=== PATIENT | male | born 1965 | race Caucasian/White ===

== ENCOUNTER 2018-05-10 14:34 | Inpatient (IN) | payer SELFPAY ==
[~2018-05-10] VITALS: Ht 182.9 cm; Wt 78.6 kg
[2018-05-10 14:37] VITALS: Ht 182.9 cm; Wt 78.6 kg
[2018-05-10 15:12] LABS: BASOPHIL % 0.5 % (0-2); PLATELET COUNT 298 x10^3mcL (130-400); RED CELL DISTRIBUTION WIDTH 13.8 % (11.5-14.5)
[2018-05-10 15:37] LABS: CARBON DIOXIDE 25.2 mmol/L (21-32); CHLORIDE SERUM 104 mmol/L (98-107); CREATININE SERUM 1.1 mg/dL (0.7-1.3); GFR1 > 60 mL/min; GLUCOSE SERUM 100 mg/dL (74-106); POTASSIUM SERUM 4.2 mmol/L (3.5-5.1); SODIUM SERUM 137 mmol/L (136-145)
[2018-05-10 15:44] LABS: ALBUMIN 3.4 g/dL (3.4-5.0); ALKALINE PHOSPHATASE 103 U/L (46-116); ALT/SGPT 27 U/L (16-63); AST/SGOT 15 U/L (15-37); BILIRUBIN TOTAL 0.3 mg/dL (0.20-1.00); TOTAL PROTEIN, SERUM 7.1 g/dL (6.4-8.2)
[2018-05-10] MEDS ORDERED: ASPIRIN CHILDRE81 MG PO (18:16)
[2018-05-10] MEDS ORDERED: PLA75 PO (18:16)
[2018-05-10 18:18] LABS: microscopic required? NO
[2018-05-10 18:30] LABS: UA SPECIFIC GRAVITY <=1.005 (1.005-1.035); urine erythrocyte NEGATIVE (NEGATIVE)
[2018-05-10 19:01] VITALS: BP 125/89
[2018-05-10 19:39] LABS: MAGNESIUM 2.3 mg/dL (1.8-2.4); PHOSPHOROUS 3.8 mg/dL (2.5-4.9)
[2018-05-10 19:40] LABS: CHOLESTEROL/HDL RATIO 5.8
[2018-05-10 23:41] LABS: FREE T4 0.84 ng/dL (0.76-1.46); FREE THYROXINE INDEX 2.7 ug/dL (1.4-4.5); T4(THYROXINE) 7.9 ug/dL (4.7-13.3)
[2018-05-11 00:56] LABS: T3 TOTAL 1.22 ng/mL
[2018-05-11 06:21] LABS: CALCIUM 8.6 mg/dL (8.5-10.1); CARBON DIOXIDE 25.9 mmol/L (21-32); CHLORIDE SERUM 107 mmol/L (98-107); CREATININE SERUM 1.1 mg/dL (0.7-1.3); GFR1 > 60 mL/min; GLUCOSE SERUM 86 mg/dL (74-106); MAGNESIUM 2.3 mg/dL (1.8-2.4); PHOSPHOROUS 4.1 mg/dL (2.5-4.9); POTASSIUM SERUM 4.1 mmol/L (3.5-5.1); SODIUM SERUM 140 mmol/L (136-145)
[2018-05-11 06:26] LABS: BASOPHIL % 0.5 % (0-2); PLATELET COUNT 254 x10^3mcL (130-400); RED CELL DISTRIBUTION WIDTH 13.7 % (11.5-14.5)
[2018-05-11 09:17] VITALS: BP 114/74
[2018-05-11 13:15] VITALS: BP 124/79
== END 2018-05-11 15:05 | disposition left against medical advice (07) | DRG 74 ==
LOC: ED 14:34 → DU 18:47
PROVIDERS: Emergency Medicine; Internal Medicine
DX: G90.9 Disorder of the autonomic nervous system, unspecified (principal); J44.9 Chronic obstructive pulmonary disease, unspecified; F17.200 Nicotine dependence, unspecified, uncomplicated; I10 Essential (primary) hypertension; R07.89 Other chest pain; R73.03 Prediabetes; Z53.21 Procedure and treatment not carried out due to patient leaving prior to being seen by health care provider; I25.2 Old myocardial infarction; Z86.73 Personal history of transient ischemic attack (TIA), and cerebral infarction without residual deficits; Z71.6 Tobacco abuse counseling
CPT/HCPCS: 83880; 84439; 90658; J2270; J7030; Q0092; Q9967

== ENCOUNTER 2019-03-13 16:34 | Emergency (ER) | payer SELFPAY ==
[~2019-03-13] VITALS: Ht 182.9 cm; Wt 89.8 kg
[~2019-03-13 16:34] MED LIST: ASPIRIN CHILDRE81 MG PO; PLA75 PO
[2019-03-13 16:39] VITALS: Ht 182.9 cm; Wt 89.8 kg
[2019-03-13 17:23] LABS: BASOPHIL % 0.1 % (0-2); PLATELET COUNT 280 x10^3mcL (130-400); RED CELL DISTRIBUTION WIDTH 14.3 % (11.5-14.5)
[2019-03-13 17:43] LABS: ALKALINE PHOSPHATASE 98 U/L (46-116); ALT/SGPT 22 U/L (16-63); AST/SGOT 13 U/L (15-37); BILIRUBIN TOTAL 0.68 mg/dL (0.20-1.00); CALCIUM 8.9 mg/dL (8.5-10.1); CREATININE SERUM 1.1 mg/dL (0.7-1.3); GFR1 > 60 mL/min; GLUCOSE SERUM 115 mg/dL (74-106); TOTAL PROTEIN, SERUM 6.5 g/dL (6.4-8.2)
[2019-03-13 17:48] LABS: CHLORIDE SERUM 104 mmol/L (98-107); POTASSIUM SERUM 3.2 mmol/L (3.5-5.1); SODIUM SERUM 128 mmol/L (136-145)
[2019-03-13 17:49] LABS: ALBUMIN 3.2 g/dL (3.4-5.0)
[2019-03-13 19:22] VITALS: BP 119/78
== END 2019-03-13 19:22 | disposition home or self-care (01) ==
LOC: ED 16:34
PROVIDERS: Student in an Organized Health Care Education/Training Program
DX: E87.1 Hypo-osmolality and hyponatremia (principal); R07.89 Other chest pain; R53.1 Weakness; R11.2 Nausea with vomiting, unspecified; J44.9 Chronic obstructive pulmonary disease, unspecified; I11.0 Hypertensive heart disease with heart failure; I50.9 Heart failure, unspecified; Z86.73 Personal history of transient ischemic attack (TIA), and cerebral infarction without residual deficits
CPT/HCPCS: 83880; J2405; Q0092

== ENCOUNTER 2020-09-07 04:26 | Inpatient (IN) | payer SELFPAY ==
[~2020-09-07] VITALS: Ht 188 cm; Wt 81.6 kg
[2020-09-07 04:38] VITALS: Ht 188 cm; Wt 81.6 kg
[2020-09-07 05:55] LABS: CALCIUM 8.9 mg/dL (8.5-10.1); CARBON DIOXIDE 25.9 mmol/L (21-32); CHLORIDE SERUM 105 mmol/L (98-107); CREATININE SERUM 1.3 mg/dL (0.7-1.3); GFR1 > 60 mL/min; GLUCOSE SERUM 106 mg/dL (74-106); POTASSIUM SERUM 4.1 mmol/L (3.5-5.1); SODIUM SERUM 139 mmol/L (136-145)
[2020-09-07 05:57] LABS: BASOPHIL % 1.2 % (0.2-1.5); PLATELET COUNT 219 x10^3mcL (152-348); RED CELL DISTRIBUTION WIDTH 13.7 % (12.1-16.2)
[2020-09-07 06:00] LABS: ALKALINE PHOSPHATASE 97 U/L (46-116); ALT/SGPT 30 U/L (16-63); AST/SGOT 13 U/L (15-37); BILIRUBIN TOTAL 0.35 mg/dL (0.20-1.00); TOTAL PROTEIN, SERUM 6.3 g/dL (6.4-8.2)
[2020-09-07 06:01] LABS: ALBUMIN 3.3 g/dL (3.4-5.0)
[2020-09-07 08:52] VITALS: BP 154/96
== END 2020-09-07 08:35 | disposition left against medical advice (07) | DRG 313 ==
LOC: ED 04:26 → DU 08:02
PROVIDERS: Emergency Medicine; ADMIT Family Medicine; ATTEND Family Medicine
DX: R07.89 Other chest pain (principal); Z20.822 Contact with and (suspected) exposure to COVID-19; J44.9 Chronic obstructive pulmonary disease, unspecified; Z86.73 Personal history of transient ischemic attack (TIA), and cerebral infarction without residual deficits; I25.2 Old myocardial infarction; I11.0 Hypertensive heart disease with heart failure; I50.9 Heart failure, unspecified; F17.200 Nicotine dependence, unspecified, uncomplicated; J40 Bronchitis, not specified as acute or chronic; Z88.8 Allergy status to other drugs, medicaments and biological substances; Z53.29 Procedure and treatment not carried out because of patient's decision for other reasons
CPT/HCPCS: 83880; 84439; 85378; 87804; G0378; J1885